=== PATIENT | male | born 1950 | race Caucasian/White ===

== ENCOUNTER 2017-02-11 06:47 | Inpatient (IN) | payer OTHER ==
[~2017-02-11] VITALS: Ht 172.7 cm; Wt 139.0 kg
[~2017-02-11 06:47] MED LIST: ASPERDRINK81 MG PO; ATORVASTATIN CA40 MG PO; BENTYL10 MG PO; CARVEDILOL25 MG PO; CENTRUM COMPLE1 EACH PO; CENTRUM SILVER1 EAC3 PO; COREG25 M1 PO; CREON DR 12,001 EAC1 PO; ENDOCET 5-3251 EACH PO; FLEXERIL10 MG PO; FOLIC ACID0.4 MG PO; GLUCOPHAGE1000 MG PO; HYDROCHLOROTHIA25 MG PO; HYDROCODON-ACE1 EAC7 PO; IBUPROFEN800 MG PO; LESCOL XL80 MG PO; LEXAPRO20 MG PO; LO-DOSE ASPIRIN81 M2 PO; LOVAZA1 GM PO; LOVENOX40 MG/0.4 SC; METFORMIN HCL1000 MG PO; NAPROSYN500 MG PO; NORVASC10 MG PO; NORVASC5 MG PO; OMEGA-31000 M1 PO; PERCOCET 5/31 TABLET PO; PRILOSEC20 MG PO; SENNA PLUS TAB1 EACH PO; TRAMADOL HCL50 MG PO; TRICOR145 MG PO; WELCHOL625 MG PO
[2017-02-11 07:29] VITALS: BP 126/76
[2017-02-11 07:44] LABS: POINT-OF-CARE METER ID UU14174212
[2017-02-11 11:57] LABS: POINT-OF-CARE METER ID UU13113675
[2017-02-11 12:18] LABS: HEMATOCRIT 40.7 % (38.0-50.0); MCH 28.5 PG (29.0-34.0); MCHC 33.4 G/DL (30.0-36.0); MCV 85.3 FL (86-99); MEAN PLAT.VOLUME 9.7 uM^3 (9.0-12.4); PLATELET COUNT 191 K/uL (156-360); RBC DIS.WIDTH-CV 13.1 % (11.8-14.6); RBC DIS.WIDTH-SD 40.5 % (39-53); RED BLOOD COUNT 4.77 M/uL (4.00-5.50); WHITE BLOOD COUNT 10.4 K/uL (4.1-10.2)
[2017-02-11 13:50] VITALS: BP 150/76
[2017-02-11 15:36] VITALS: BP 135/78
[2017-02-11 16:50] LABS: POINT-OF-CARE METER ID UU13113712
[2017-02-11 20:02] VITALS: BP 149/73
[2017-02-11 22:15] LABS: POINT-OF-CARE METER ID UU13113712
[2017-02-11 23:45] VITALS: BP 146/73
[2017-02-12 03:43] VITALS: BP 152/81
[2017-02-12 05:35] LABS: MCV 85.2 FL (86-99)
[2017-02-12 06:18] LABS: ANION GAP 11 MEQ/L (2-14); CHLORIDE 96 MEQ/L (99-109); GFR ESTIMATE (CALCULATED) > 59 mL/min/; GLUCOSE 143 mg/dL (70-99); SAMPLE HEMOLYSIS CHECK 0; SAMPLE ICTERIC CHECK 0; SAMPLE LIPEMIA CHECK 0; SODIUM 135 MEQ/L (136-147); UREA NITROGEN (BUN) 10 mg/dL (9-23)
[2017-02-12 08:00] VITALS: BP 134/69
[2017-02-12] MEDS ORDERED: CELECOXIB200 MG PO (09:26)
[2017-02-12] MEDS ORDERED: LOVENOX40 MG/0.4 SC ×2 (09:26→09:35)
[2017-02-12] MEDS ORDERED: ENDOCET 5-3251 EACH PO (09:26)
[2017-02-12 11:28] LABS: POINT-OF-CARE METER ID UU13113712
[2017-02-12 11:34] VITALS: BP 123/67
[2017-02-12 15:54] VITALS: BP 109/60
[2017-02-12 16:41] LABS: POINT-OF-CARE METER ID UU13113712
[2017-02-12 20:18] VITALS: BP 141/71
[2017-02-12 21:48] LABS: POINT-OF-CARE METER ID UU13113712
[2017-02-13 00:26] VITALS: BP 105/52
[2017-02-13 04:00] VITALS: BP 95/51
[2017-02-13 05:38] LABS: HEMATOCRIT 33.6 % (38.0-50.0); MCV 84.6 FL (86-99)
[2017-02-13 07:54] VITALS: BP 106/59
[2017-02-13 08:05] LABS: POINT-OF-CARE METER ID UU13113712
[2017-02-13 11:03] VITALS: BP 109/59
[2017-02-13 11:21] LABS: POINT-OF-CARE METER ID UU13113712
[2017-02-13 15:14] VITALS: BP 112/69
== END 2017-02-13 16:20 | DRG 470 ==
LOC: 2SOUTH 06:47 → 3WEST 13:32
PROVIDERS: Orthopaedic Surgery
PROC: 0SRD0JA Replacement of Left Knee Joint with Synthetic Substitute, Uncemented, Open Approach (ICD-10-PCS; principal; 2017-02-11)
PROC: 5A09357 Assistance with Respiratory Ventilation, Less than 24 Consecutive Hours, Continuous Positive Airway Pressure (ICD-10-PCS; 2017-02-12)
DX: M17.12 Unilateral primary osteoarthritis, left knee (principal); I10 Essential (primary) hypertension; E11.9 Type 2 diabetes mellitus without complications; G47.33 Obstructive sleep apnea (adult) (pediatric); F41.9 Anxiety disorder, unspecified; E03.9 Hypothyroidism, unspecified; Z96.611 Presence of right artificial shoulder joint; Z96.641 Presence of right artificial hip joint; Z79.82 Long term (current) use of aspirin
CPT/HCPCS: 73560; 80048; 82948; 85014; 85018; 85027; 94660; 94799; J0461; J0690; J1170; J1650; J1815; J2250; J3010; J7030; J7050

== ENCOUNTER 2017-11-16 18:10 | Emergency (ER) | payer OTHER ==
[~2017-11-16] VITALS: Ht 172.7 cm; Wt 140.6 kg
[~2017-11-16 18:10] MED LIST changes: +CELECOXIB200 MG PO
[2017-11-16] MEDS ORDERED: NORCO 10/3251 TABLET PO (20:38)
[2017-11-16 21:03] VITALS: BP 155/82
== END 2017-11-16 21:04 | disposition home or self-care (01) ==
LOC: EME 18:10
PROC: 2Y41X5Z Packing of Nasal Region using Packing Material (ICD-10-PCS; principal; 2017-11-16)
DX: R04.0 Epistaxis (principal); E78.5 Hyperlipidemia, unspecified; Z79.84 Long term (current) use of oral hypoglycemic drugs; Z88.1 Allergy status to other antibiotic agents
CPT/HCPCS: 99281; 99284